=== PATIENT | male | born 1990 | race African-American/Black ===

== ENCOUNTER 2020-10-08 21:11 | Emergency (ER) | payer MEDICAID ==
[2020-10-08 23:45] VITALS: BP 149/96; PULSE 74
--- NOTE | 2020-10-08 23:54 | ER ---
HISTORY OF PRESENT ILLNESS: 30-year-old male here with complaints of getting fishhooks into 2 fingers on his left hand. This happened as he was tying a new hook on his line. The hook was brand new. He pulled on it and the knot came loose he believes and the hook ended up imbedded with two hooks of the treble hook in the thumb and the third of the treble hooks imbedded in the middle or long finger. They cut the hook in two to separate the patient's fingers. The patient tells me he is healthy. He is not on any blood thinners and again the fishhook was brand new at the time of the incident. OBJECTIVE: GENERAL APPEARANCE: The patient is awake and alert. No obvious distress. EXTREMITIES: Examining the left hand reveals 2 hooks imbedded into the pad of the left thumb and the third hook into the middle portion of the third finger. There is no bleeding at this time. DIAGNOSIS: [place] removal from left hand. TREATMENT PLAN: The sites were swabbed with alcohol, after which I injected 1% lidocaine without epi locally at the insertion site of all 3 hooks starting with a one on the middle finger. Using a needle-nose plier, I was able to remove it on my second attempt. The patient tolerated this well. Then, using a string-yank method, I removed the 2 hooks from the thumb with 1 pull without any difficulty. The pressure was applied with a gauze for a minute or so and nursing staff applied Band-Aids. He is to monitor for infection. The patient tells me he does not need a tetanus shot. [id number] medications are to be used as needed for pain control, and if any sign of infection should develop, he is to follow up as needed. BIANCA/GOPIL /[id number] MINA
== END 2020-10-08 21:38 | disposition home or self-care (01) ==
LOC: LB.ED 21:11
DX: S60.352A Superficial foreign body of left thumb, initial encounter (principal); S60.453A Superficial foreign body of left middle finger, initial encounter; W45.8XXA Other foreign body or object entering through skin, initial encounter
CPT/HCPCS: 99283; J2001